=== PATIENT | female | born 1960 | race Caucasian/White ===

== ENCOUNTER 2017-10-07 17:29 | Emergency (ER) | payer BC ==
[2017-10-07] MEDS ORDERED: ONDANSETRON HCL INJ/PF 4 MG/2 ML SDV IV ONE (17:46)
[2017-10-07] MEDS ORDERED: MORPHINE SULFATE 10 MG/ML INJ IV ONE (17:46)
[2017-10-07] MEDS ORDERED: NORMAL SALINE 1000 ML 1,000 ML IV ONE ×2 (17:46→20:37)
[2017-10-07] MEDS ORDERED: KETOROLAC TROMETHAMINE INJ/PF 30 MG/1 ML SDV IV ONE (17:46)
--- NOTE | 2017-10-07 17:47 | ER Document Report ---
ED Medical Screen (RME) - General Chief Complaint: Kidney stones, abdominal pain Stated Complaint: ABDOMINAL PAIN Time Seen by Provider: 10/07/17 17:44 Notes: Patient states she is recently diagnosed here with kidney stones. She followed up with her urologist who told her that they are going to treat her with oxycodone and then reassess to see if the stones had moved. She states the pain is now worse than it was before and has not been helped by the oxycodone. TRAVEL OUTSIDE OF THE [place] IN LAST 30 DAYS: No - Related Data Allergies/Adverse Reactions: No Known Allergies Allergy (Unverified 09/22/17 15:57) Past Medical History - Social History Chew tobacco use (# tins/day): No Frequency of alcohol use: None Drug Abuse: None Renal/ Medical History: Denies: Hx Peritoneal Dialysis Past Surgical History: Reports: Hx Tubal Ligation - Immunizations Hx Diphtheria, Pertussis, Tetanus Vaccination: No History of Influenza Vaccine for 08/2017 - 01/2018 Season: No Physical Exam - Vital signs Vitals: Temp Pulse Resp BP Pulse Ox 97.9 F 107 H 22 H 154/111 H 96 10/07/17 17:35 10/07/17 17:35 10/07/17 17:35 10/07/17 17:35 10/07/17 17:35 Course - Vital Signs Vital signs: Temp Pulse Resp BP Pulse Ox 97.9 F 107 H 22 H 154/111 H 96 10/07/17 17:35 10/07/17 17:35 10/07/17 17:35 10/07/17 17:35 10/07/17 17:35
[2017-10-07 18:23] LABS: APPEARANCE,URINE SLIGHTLY-CLOUDY; BILIRUBIN,URINE NEGATIVE (NEGATIVE); CALCIUM OXALATE CRYSTALS,URINE FEW /HPF; GLUCOSE, URINE NEGATIVE (NEGATIVE); KETONES,URINE NEGATIVE (NEGATIVE); LEUKOCYTE ESTERASE,URINE MODERATE (NEGATIVE); NITRITE,URINE NEGATIVE (NEGATIVE); PROTEIN,URINE 30 mg/dL (NEGATIVE); URINE SPECIFIC GRAVITY 1.018; UROBILINOGEN,URINE NEGATIVE mg/dL (<2.0)
[2017-10-07 18:58] LABS: ABSOLUTE BASOPHILS # (AUTO) 0.1 10^3/uL (0.0-0.2); ABSOLUTE EOSINOPHILS # (AUTO) 0.1 10^3/uL (0.0-0.6); ABSOLUTE LYMPHOCYTES (AUTO) 1.1 10^3/uL (0.5-4.7); ABSOLUTE MONOCYTES (AUTO) 1.1 10^3/uL (0.1-1.4); ABSOLUTE NEUT (AUTO) 10.8 10^3/uL (1.7-8.2); BASOPHILS % (AUTO) 0.5 % (0-2); EOSINOPHILS % (AUTO) 0.8 % (0-6); HEMOGLOBIN 14.6 g/dL (12.0-15.5); HGB HCT DIFFERENCE 0.8; LYMPHOCYTES % (AUTO) 8.6 % (13-45); MEAN CORPUSCULAR VOLUME 88 fl (80-97); MONOCYTES % (AUTO) 8.3 % (3-13); RED BLOOD COUNT 4.88 10^6/uL (3.72-5.28); RED CELL DISTRIBUTION WIDTH 13.2 % (11.5-14.0); SEGMENTED NEUTROPHILS % (AUTO) 81.8 % (42-78); WHITE BLOOD COUNT 13.2 10^3/uL (4.0-10.5)
[2017-10-07 19:14] LABS: ALANINE AMINOTRANSFERASE 52 U/L (9-52); ALBUMIN 4.7 g/dL (3.5-5.0); ALKALINE PHOSPHATASE 81 U/L (38-126); ANION GAP 13 (5-19); ASPARTATE AMINO TRANSFERASE 33 U/L (14-36); BILIRUBIN,DIRECT 0.4 mg/dL (0.0-0.4); BILIRUBIN,TOTAL 1.3 mg/dL (0.2-1.3); BLOOD UREA NITROGEN 13 mg/dL (7-20); CALCIUM 10.4 mg/dL (8.4-10.2); CARBON DIOXIDE 24 mmol/L (22-30); CHLORIDE 104 mmol/L (98-107); GLUCOSE 110 mg/dL (75-110); POTASSIUM 4.2 mmol/L (3.6-5.0); SODIUM 141.1 mmol/L (137-145); TOTAL PROTEIN 7.5 g/dL (6.3-8.2)
[2017-10-07] MEDS ORDERED: HYDROMORPHONE HCL INJ/PF 2 MG/ML AMPULE IV PRN (20:37)
--- NOTE | 2017-10-07 20:37 | ER Document Report ---
ED General - General Chief Complaint: Kidney stones, abdominal pain Stated Complaint: ABDOMINAL PAIN Time Seen by Provider: 10/07/17 17:44 Notes: Patient is a 57-year-old female with a past medical history of a left-sided kidney stone diagnosed on 09/22 who presents with ongoing left side and flank pain. Describes it as a severe, constant, stabbing pain to the left flank that radiates into the left lower abdomen. Nothing improves or worsens the pain. She has been trying oxycodone at home without any improvement of the pain. She has had associated nausea but no vomiting. She has seen a urologist as an outpatient but no additional management was recommended at that time. She has no history of similar symptoms prior to this past month. She states she came to the emergency department tonight after her symptoms became progressively worse over the last 24 hours. TRAVEL OUTSIDE OF THE [place] IN LAST 30 DAYS: No - Related Data Allergies/Adverse Reactions: No Known Allergies Allergy (Unverified 09/22/17 15:57) Past Medical History - General Information source: Patient - Social History Smoking Status: Never Smoker Chew tobacco use (# tins/day): No Frequency of alcohol use: None Drug Abuse: None Lives with: Spouse/Significant other Family History: Reviewed & Not Pertinent Patient has suicidal ideation: No Patient has homicidal ideation: No Renal/ Medical History: Denies: Hx Peritoneal Dialysis Past Surgical History: Reports: Hx Tubal Ligation - Immunizations Hx Diphtheria, Pertussis, Tetanus Vaccination: No Review of Systems - Review of Systems Notes: Constitutional: Negative for fever. HENT: Negative for sore throat. Eyes: Negative for visual changes. Cardiovascular: Negative for chest pain. Respiratory: Negative for shortness of breath. Gastrointestinal: Positive for left flank pain and nausea Genitourinary: Negative for dysuria. Musculoskeletal: Negative for back pain. Skin: Negative for rash. Neurological: Negative for headaches, weakness or numbness. 10 point ROS negative except as marked above and in HPI. Physical Exam - Vital signs Vitals: Temp Pulse Resp BP Pulse Ox 97.9 F 107 H 22 H 154/111 H 96 10/07/17 17:35 10/07/17 17:35 10/07/17 17:35 10/07/17 17:35 10/07/17 17:35 Interpretation: Tachycardic Notes: PHYSICAL EXAMINATION: GENERAL: Appears uncomfortable but no acute distress HEAD: Atraumatic, normocephalic. EYES: Pupils equal round and reactive to light, extraocular movements intact, sclera anicteric, conjunctiva are normal. ENT: nares patent, oropharynx clear without exudates. Moderately dry mucous membranes. NECK: Normal range of motion, supple without lymphadenopathy LUNGS: Breath sounds clear to auscultation bilaterally and equal. No wheezes rales or rhonchi. HEART: Regular tachycardia without murmurs ABDOMEN: Soft, mild left CVA tenderness as well as left lower quadrant abdominal discomfort without rebound or guarding. EXTREMITIES: Normal range of motion, no pitting or edema. No cyanosis. NEUROLOGICAL: No focal neurological deficits. Moves all extremities spontaneously and on command. PSYCH: Normal mood, normal affect. SKIN: Warm, Dry, normal turgor, no rashes or lesions noted. Course - Re-evaluation Re-evalutation: 10/07/17 20:36 Patient presents with ongoing left flank pain, vomiting, and a urinalysis that is again concerning for an infected nephrolithiasis. Patient has seen a urologist as an outpatient but has not yet had lithotripsy or a stent placed as apparently her urine no longer look infected in the office. Will obtain cultures, begin additional IV fluids, pain medications, antibiotics, obtain a CT to evaluate for any evidence of a renal abscess as well as the location of the stone and then speak with urology at [facility] where the patient has established urology care 10/07/17 23:22 CT scan x-ray shows that the stone has increased in size to 9 mm with associated obstruction. I have contacted [facility]. 10/07/17 23:35 I have spoken to Dr[address] Chavarria at [facility] urology vice president of consulting services who after reviewing labs and imaging plans to take the patient to the operating room in the morning for a stent. The patient has received ceftriaxone and IV fluids, he believes that the patient is stable for discharge home as she will have the nephrostomy tube likely placed very early in the morning. I think this is reasonable as patient's pain is controlled at this time and she has been able to tolerate oral intake. She will be discharged with instructions to contact the clinic in the morning and Dr. Chavarria's plan to have her called as well to confirm surgical time. - Vital Signs Vital signs: Temp Pulse Resp BP Pulse Ox 97.8 F 78 14 135/72 H 91 L 10/07/17 23:45 10/07/17 23:45 10/07/17 23:45 10/07/17 23:45 10/07/17 23:45 - Laboratory Result Diagrams: 10/07/17 18:38 10/07/17 18:38 Laboratory results interpreted by me: 10/07/17 10/07/17 10/07/17 18:05 18:38 18:38 WBC 13.2 H Seg Neutrophils % 81.8 H Lymphocytes % 8.6 L Absolute Neutrophils 10.8 H Calcium 10.4 H Urine Protein 30 H Urine Blood MODERATE H Ur Leukocyte Esterase MODERATE H - Diagnostic Test Radiology reviewed: Reports reviewed Discharge - Discharge Clinical Impression: Kidney stone on left side Urinary tract infection Qualifiers: Urinary tract infection type: site unspecified Hematuria presence: with hematuria Qualified Code(s): N39.0 - Urinary tract infection, site not specified Condition: Fair Disposition: HOME, SELF-CARE Additional Instructions: I have spoken to , the urologist on-call at [facility]. He plans to take you to the operating room in the morning. You will be called for this appointment. Please also call the office to let them know about this arrangement. Return before then for worsening pain, persistent vomiting, or any other symptoms that are concerning to you.
[2017-10-07] MEDS ORDERED: CEFTRIAXONE 1 GM/D5W RTU 1 GM/50 ML RTUPB IV ONE (21:00)
--- NOTE | 2017-10-07 22:56 | RADIOLOGY REPORT (SQ) ---
EXAM DESCRIPTION: CT LTD RENAL STONE PROTOCOL ON COMPLETED DATE/TIME: 10/07/2017 9:55 pm REASON FOR STUDY: eval infected stone COMPARISON: 09/22/2017. TECHNIQUE: CT scan of the abdomen and pelvis performed without intravenous or oral contrast. Images reviewed with lung, soft tissue, and bone windows. Reconstructed coronal and sagittal MPR images revi ewed. All images stored on PACS. All CT scanners at this facility use dose modulation, iterative reconstruction, and/or weight based d osing when appropriate to reduce radiation dose to as low as reasonably achievable (ALARA). [facility]: Dose Right [facility]: CareDose [facility]: Dose Right [facility]: Teradose 4D [facility]: Smart Nexsan RADIATION DOSE: Up-to-date CT equipment and radiation dose reduction techniques were employed. CTDIv ol: 7.1 mGy. DLP: 382 mGy-cm.mGy. LIMITATIONS: None. FINDINGS: LOWER CHEST: Interstitial markings of the lung base likely due to chronic interstitial genaro g disease and/or mild fibrosis. NON-CONTRASTED LIVER, SPLEEN, ADRENALS: Evaluation limited by lack of IV contrast. No identified sign ificant masses. Moderate hepatic steatosis. PANCREAS: No masses. No peripancreatic inflammatory changes. GALLBLADDER: No identified stones by CT criteria. No inflammatory changes to suggest cholecystitis. RIGHT KIDNEY AND URETER: No suspicious masses. Assessment limited by lack of IV contrast. No signif icant calcifications. No hydronephrosis or hydroureter. LEFT KIDNEY AND URETER: 0.9 x 0.5 x 0.4 cm fragmented left distal ureteral stone (including a 0.6 cm component) at the level of the S5 vertebral body with moderate left hydronephrosis -hydroureter. AORTA AND RETROPERITONEUM: No aneurysm. No retroperitoneal masses or adenopathy. BOWEL AND PERITONEAL CAVITY: No obvious masses or inflammatory changes. No free fluid. APPENDIX: Normal. PELVIS, BLADDER, AND ABDOMINAL WALL:No abnormal masses. No free fluid. Bladder normal. BONES: No significant findings. OTHER: No other significant finding. IMPRESSION: 0.9 cm left distal ureteral stone with moderate grade obstruction. COMMENT: Quality ID # [id number]: Final reports with documentation of one or more dose reduction techniques (e.g., Automated exposure control, adjustment of the mA and/or kV according to patient size, use of iterative reconstruction technique) TECHNICAL DOCUMENTATION: JOB ID: [id number] [employer]- All Rights Reserved
[2017-10-08 00:22] VITALS: BP 135/72
== END 2017-10-07 23:51 | disposition home or self-care (01) ==
LOC: ER 17:29
DX: N39.0 Urinary tract infection, site not specified (principal); N20.0 Calculus of kidney; R10.9 Unspecified abdominal pain; Z79.899 Other long term (current) drug therapy
CPT/HCPCS: 99284; 96361; 96375; 96365; 36415; 87086; 85025; 80053; 81001; 76380; J1885; J2270; J1170; J2405; J7030; J0696